=== PATIENT | male | born 2000 | race Caucasian/White ===

== ENCOUNTER 2025-08-31 12:10 | Emergency (ER) | payer SELFPAY ==
[2025-08-31 12:42] VITALS: BP 123/60; PULSE 74; RESP 18; TEMP 36.7; O2SAT 100; BMI 18.6
[2025-08-31 13:14] LABS: Strep A Nucleic Acid Negative (Negative)
[2025-08-31 13:17] LABS: MANUAL DIFF FLAG NO
[2025-08-31 13:23] LABS: Hematocrit 43.2 % (42.0-52.0); Hemoglobin 15.3 g/dl (14.0-18.0); Imm Gran Abs Auto 0.02 X10*3/uL (0.00-0.03); Imm Gran Pct Auto 0.3 % (0.0-0.4); Lymphocytes Absolute Auto 1.0 X10*3/uL (1.2-4.9); Mean Corpuscular HGB Conc 35.4 g/dl (31.0-36.0); Mean Corpuscular Hemoglobin 28.4 pg (27.0-33.0); Mean Corpuscular Volume 80.3 fL (80.0-98.0); NRBC Abs Auto 0.000 X10*3/uL (0.0-0.012); NRBC Pct Auto 0.0 /100WBC (0.0-0.2); Platelet Count 197 X10*3/uL (160-400); Red Blood Count 5.38 X10*6/uL (4.60-5.80); White Blood Count 6.0 X10*3/uL (4.8-10.8)
[2025-08-31 13:34] LABS: Alanine Aminotransferase 12 U/L (0-40); Albumin Level 4.7 g/dL (3.5-5.0); Alkaline Phosphatase 71 U/L (39-117); Anion Gap 12 (12-20); Aspartate Amino Transferase 21 U/L (5-37); Blood Urea Nitrogen 12 mg/dL (9-16); Calcium 9.2 mg/dL (8.4-10.2); Carbon Dioxide 21 mmol/L (22-29); Chloride 110 mmol/L (96-108); Creatinine Clr Calc Pharmacy 123.4; Estimated Glomerular Filt Rate > 60; Potassium 3.9 mmol/L (3.3-5.1); Sodium 139 mmol/L (135-145); Total Protein 6.7 g/dL (6.5-8.0)
[2025-08-31 13:45] LABS: Resp Syncy Virus RNA Qual PCR NEGATIVE (Negative); SARS COV2 PCR INHOUSE POSITIVE (Negative)
--- NOTE | 2025-08-31 14:40 | ED.URI ---
HPI - URI/Sore Throat General Chief Complaint: Upper Respiratory Symptoms Stated Complaint: not feeling well Related Data Allergies Allergy/AdvReac Type Severity Reaction Status Date / Time amoxicillin Allergy Unknown Verified 08/31/25 12:44 Penicillins Allergy Unknown Verified 08/31/25 12:44 [facility] Social History Social History Advance Directives: No Advance Directives Information Provided: Yes Physical Exam Vital Signs: Vital Signs: Last Vital Signs Temp 98.1 F 08/31/25 12:42 Pulse 74 08/31/25 12:42 Resp 18 08/31/25 12:42 BP 123/60 08/31/25 12:42 Pulse Ox 100 08/31/25 12:42 O2 Del Method Room Air 08/31/25 12:42 BMI result Body Mass Index 18.6 Course Course Course Narrative: This is an RME: Additional HPI, ROS, PE not included below will be deferred to primary provider. RME assessment and note performed by: Lisa Mtz PA-C This is a 25-year-old male who presents emergency department with concerns of feeling unwell for the last 2 days including cough, runny nose, stomach pain URI symptoms. Recent exposure to someone with mono and would like to be tested. Patient well-appearing, appears to be under no acute distress. We will obtain basic labs, as well as test for COVID, flu, and RSV. >> upon calling patient back when results returned, patient no longer in the waiting room. Reevaluation(s) Reevaluation #1: Patient left without completing treatment. Medical Decision Making Lab Data 08/31/25 13:04 08/31/25 13:04 Labs: Lab Results 08/31/25 08/31/25 Range/Units 12:58 13:04 WBC 6.0 (4.8-10.8) X10*3/uL RBC 5.38 (4.60-5.80) X10*6/uL Hgb 15.3 (14.0-18.0) g/dl Hct 43.2 (42.0-52.0) % MCV 80.3 (80.0-98.0) fL MCH 28.4 (27.0-33.0) pg MCHC 35.4 (31.0-36.0) g/dl RDW 12.6 (11.0-16.0) % Plt Count 197 (160-400) X10*3/uL MPV 10.7 (9.4-12.4) fL Immature Gran % (Auto) 0.3 (0.0-0.4) % Neut % (Auto) 69.0 (45-73) % Lymph % (Auto) 16.1 L (20-40) % Collier % (Auto) 13.4 H (2-11) % Eos % (Auto) 0.5 (0-4) % Baso % (Auto) 0.7 (0-2) % Lymph # (Auto) 1.0 L (1.2-4.9) X10*3/uL Collier # (Auto) 0.8 (0.1-1.2) X10*3/uL Eos # (Auto) 0.0 (0.0-0.4) X10*3/uL Baso # (Auto) 0.0 (0.0-0.2) X10*3/uL Abs Immat Gran (auto) 0.02 (0.00-0.03) X10*3/uL Absolute Neuts (auto) 4.1 (2.0-8.3) x10*3/uL Absolute Nucleated RBC 0.000 (0.0-0.012) X10*3/uL Nucleated RBC % (auto) 0.0 (0.0-0.2) /100WBC Sodium 139 (135-145) mmol/L Potassium 3.9 (3.3-5.1) mmol/L Chloride 110 H (96-108) mmol/L Carbon Dioxide 21 L (22-29) mmol/L Anion Gap 12 (12-20) BUN 12 (9-16) mg/dL Creatinine 0.84 (0.5-1.4) mg/dL Estim Creat Clear Calc 123.4 Estimated GFR > 60 Random Glucose 91 (60-115) mg/dL Calcium 9.2 (8.4-10.2) mg/dL Total Bilirubin 1.1 H (0.0-1.0) mg/dL AST 21 (5-37) U/L ALT 12 (0-40) U/L Alkaline Phosphatase 71 (39-117) U/L Total Protein 6.7 (6.5-8.0) g/dL Albumin 4.7 (3.5-5.0) g/dL Monoscreen Negative (Negative) Influenza Type A (PCR) NEGATIVE (Negative) Influenza Type B (PCR) NEGATIVE (Negative) RSV RNA Qual (PCR) NEGATIVE (Negative) SARS-CoV-2 RNA (RT-PCR) POSITIVE A (Negative) S. pyogenes GrpA JUANITA Negative (Negative) Discharge Plan Discharge Clinical Impression: COVID Patient Disposition: Left W/O Completing Treatment Additional Instructions: You were seen in the emergency department and you tested positive for COVID. Your blood work is otherwise reassuring. COVID-19 stands for coronavirus disease 2019. It is caused by a virus called SARS-CoV-2. The virus first appeared in late 2019 and quickly spread around the world. Many people only have mild cold symptoms. Some people have digestive problems, like nausea or diarrhea. There have also been some reports of rashes or other skin symptoms. For most people, symptoms get better within a few days to weeks.? Some people with COVID-19 continue to have some symptoms for weeks or months.? Drink plenty of fluids and get plenty of rest. Take Tylenol and Motrin as needed for symptoms. If any new or worsening symptoms occur including but not limited to chest pain or shortness of breath, please return for re-evaluation. What should I do if I have symptoms or test positive?If you have a fever, cough, cold symptoms, or other symptoms of COVID-19, get tested. You can use the flowchart to figure out when to test and what to do based on the results If you?test positive: ? Self-isolate for at least 5 days, even if you feel well. Self-isolation means staying apart from other people, even the people you live with. The 5 days should start the day?after?you first noticed symptoms or got a positive test result. If you have a weak immune system or if you still have a fever, you might need to self-isolate for longer than 5 days. ?After self-isolating for 5 days, wear a mask around all other people for at least 5 more days. Some people use antigen tests to decide how long to keep wearing the mask. If you do this, you can stop wearing a mask once you test negative on 2 antigen tests done at least 2 days apart. ?If your symptoms are severe, or if you are at risk for severe illness,?call?your doctor or nurse. They can tell you if you need to be seen. Depending on your situation, they might suggest treatment. Discharge Date/Time: 08/31/25 14:56
--- OUTSIDE RECORDS SUMMARY | 2025-08-31 16:55 | XMS_ITS ---
Author Name [facility] Organization Unknown Care Team Organization Name Specialty Phone Email Start Date End Da te [facility] 11/19/2022 05/02/2024 [facility] 07/22/20222023
--- OUTSIDE RECORDS SUMMARY | 2025-08-31 16:55 | XMS_ITS | Clinical Summary ---
Author Organization [facility] Address [address] [place] [address] Phone Care Team Providers Care Anchor Tacker Name Role Phone Physician, No Pcp Primary Care Provider Unavaila ble Allergies Active Allergy Reactions Criticality Noted Date Comments Amoxicillin Hives 10/13/2017 Penicillins Unknown 06/28/2025 Medications ibuprofen (ADVIL,MOTRIN) 400 mg tablet Take 1 Tab by mouth every 6 hours as needed for Pain. Take with food 08/20/2018 Active Active Problems Problem Noted Date Diagnosed Date ADHD 09/09/2024 Depression 09/09/2024 Sleep difficulties 09/09/2024 Social anxiety disorder 09/09/2024 Overview (09/09/2024): 11-16 consulted with Emelia 08/27/2018 better off meds, home school at the moment. Encounters Date Type Department Care Team Description 06/29/2025 6:37 PM EDT - 06/29/2025 11:59 PM EDT Hospital Encounter [facility] Bedside Imaging [address] [place] [address] Discharge Disposition: Home or Self Care 06/28/2025 7:36 PM EDT - 06/28/2025 9:[address] [facility] Emergency [address] [place] [address] Tee Khoury MD Cellulitis of knee, left (Primary Dx) Discharge Disposition: Home or Self Care from Last 3 Months Immunizations Immunization Administration Dates Next Due DTaP (Infanrix) 6wks to less than 7yo ,02/08/2004,06/01/2003,04/14,01/06/2003 EHuL-UWY-PPO (Pentacel) 2mo to less than 5yo 02/08/2004,06/01/2003,04/14/2003,01/06 HPV, Quadrivalent 06/22/2015,11/15/2014,12/03/19 14 Hepatitis B Pediatric (Enger ix B; Recombivax HB) to less than 20 yo 06/01/2003,2002,2002 IPV Inactivated polio (Ipol) 6wks and older 11/24/2007,06/01/2003,04/14/2003,01/06 Influenza trivalent, with pr eservative (Fluzone; Afluria) 6mo and older 2008 Influenza, live, intranasal, trivalent (FluMist) 2yo to less than 50yo 06/22/2015,07/08/2012,09/18/2010 MMR, measles mumps and rubel la Live (Priorix; M-M-R II) 12mo and older 02/08/2004 MMRV, measles mumps rubella and varicella live (Proquad) 4yo to less than 7yo 10/05/2006 Meningococcal MCV4P 03/22/2019,12/02/2013 Pneumococcal Conjugate Vacci ne, 7 Valent 06/01/2003,04/14/2003,01/06/2003 Tdap Tetanus diptheria acell ular pertussis (Boostrix; Adacel) 7yo and older 10/28/2012 Varicella live (Varivax) 12m o and older 02/08/2004 Surgical History Surgery Date Site/Laterality Comments CIRCUMCISION, PRIMARY PROCEDURE: HISTORICAL CIRCUMCISION Medical History Medical History Date Comments Adhd DX:ADHD Social anxiety disorder DX:Socia l anxiety disorder Sleep difficulties DX:Sleep diff iculties Depression DX:Depression Family History Medical History Relation Name Comments Sleep apnea Brother Other: Other Maternal Grandfather asbestu s exposure 1 lung Diabetes Maternal Grandmother Other cancer Maternal Grandmother 61 y/o leukemia Cervical cancer Mother Other: Other Paternal Grandfather pancrea titis 66 y/o Asthma Paternal Grandmother Heart attack Paternal Grandmother Stroke Paternal Grandmother Relation Name Status Comments Brother Alive Father Alive Maternal Grandfather Alive Maternal Grandmother Mother Alive Paternal Grandfather Paternal Grandmother (Age 63y/o) Sister 1 Alive Sister 2 Alive Social History Tobacco Use Types Packs/Day Years Used Date Smoking Tobacco: Every Day Cigarettes Passive Smoke Exposure: Yes Smokeless Tobacco: Current Tobacco Cessation:Ready to Q uit: No; Counseling Given: Not Answered Sex and Gender Information Value Date Recorded Sex Assigned at Male 01/06/2025 5:32 PM EDT Legal Sex Male 10:52 PM EST Gender Identity Male 01/06/2025 5:32 PM EDT Sexual Orientation Straight 01/06/2025 5: 32 PM EDT Last Filed Vital Signs Vital Sign Reading Time Taken Comments Blood Pressure 128/67 06/28/2025 5:50 PM EDT Pulse 80 06/28/2025 5:50 PM EDT Temperature 36.7 C (98 F) 06/28/2025 5:50 PM EDT Respiratory Rate 16 06/28/2025 5:50 PM EDT Oxygen Saturation 100% 06/28/2025 5:50 PM EDT Inhaled Oxygen Concentration - - Weight 66.7 kg (147 lb) 06/28/2025 5:50 PM EDT Height 185.4 cm (6' 1 ) 06/28/2025 5:50 PM EDT Body Mass Index 19.39 06/28/2025 5:50 PM EDT Plan of Treatment Health Maintenance Due Date Last Done Comments Pneumococcal Vaccine: Pediatrics (0 to 5 Years) and At-Risk Patients (6 to 49 Years) (1 of 1 - PPSV23, PCV20, or PCV21) 2008 06/01/2003, 04/14/2003, 01/06/2003 Meningococcal B Vaccine (1 of 2 - Standard) 2018 Cholesterol Screening (Lipid Panel) 08/17/2022 HIV Screening 08/17/2022 Hepatitis C Screening 08/17/2022 Social Influencers of Health Screening 08/17/2022 DTaP,Tdap,and Td Vaccines (7 - Td or Tdap) 10/28/2022 10/28/2012, 11/24/2007, 02/08/2004, Additional history exists Depression Screening 09/14/2024 COVID-19 Vaccine (1 - season) 2025 Influenza Vaccine (#1) 2025 5, 07/08/2012, 09/18/2010, Additional history exists RSV Immunization Adult Patients (1 - 1-dose 75+ series) 2077 Hepatitis B Vaccines Completed 06/01/2003, 2002, 2002 HIB Vaccines Completed 02/08/2004, 05/15, 04/14/2003, Additional history exists MMR Vaccines Completed 10/05/2006, 02/08/2004 Varicella Vaccines Completed 10/05/2006, 02/08/2004 IPV Vaccines Completed 11/24/2007, 01/13, 06/01/2003, Additional history exists HPV Vaccines Completed 06/22/2015, 12/2014, 12/02/2013 Meningococcal ACWY Vaccine Completed 03/22/2019, Hepatitis A Vaccines Aged Out No long er eligible based on patient's age to complete this topic RSV Immunization Patients Under 20 months Aged Out No longer eligible based on patient's age to complete this topic Procedures Procedure Name Priority Date/Time Associated Diagnosis Comments US BEDSIDE SOFT TISSUE/MUSCULOSKELETA L Routine 06/29/2025 6:37 PM EDT XR KNEE 4+ VIEWS LEFT STAT 06/28/2025 7:46 PM EDT CBC WITH AUTO DIFFERENTIAL STAT 06/28/2025 7:35 PM EDT C-REACTIVE PROTEIN STAT 06/28/2025 7: 35 PM EDT HEPATIC FUNCTION PANEL STAT 06/28/2025 7:35 PM EDT BASIC METABOLIC PANEL STAT 06/28/2025 7:35 PM EDT CBC AND DIFFERENTIAL STAT 06/28/2025 7:35 PM EDT from Last 3 Months Results * US BEDSIDE SOFT TISSUE/MUSCULOSKELETAL (06/29/2025 6:37 PM EDT) Anatomical Region Laterality Modality Ultrasound Narrative 06/29/2025 6:37 PM EDT Tee Canas MD 06/29/2025 6:38 PM US ED Bedside Soft Tissue/Musculoskeletal Date/Time: 06/29/2025 6:37 PM Performed by: Tee Canas MD Authorized by: Tee Canas MD Procedure details: Indications: cellulitis Transverse view: Visualized Longitudinal view: Visualized Findings: Fracture: not identified Tendon rupture: not identified Muscle tear: not identified Infant hip effusion: not identified Joint effusion: not identified Comments: Cobblestones around scab wound with no drainable abscess. us Tee Canas MD US BEDSIDE PROCEDURE S Final Result * XR Knee 4+ Views Left (06/28/2025 7:46 PM EDT) Anatomical Region Laterality Modality Lower Extremities, Knee Left Radiogra phic Imaging 06/29/2025 7:32 AM EDT Impressions 06/29/2025 7:33 AM EDT No acute fracture or subluxation. Extensive soft tissue swelling. This study does not exclude infection. -------- FINAL REPORT -------- Dictated By: Gunner Flowers Dictated Date: 06/29/2025 07:32 ET Assigned Physician: Gunner Flowers Reviewed and Electronically Signed By: Gunner Flowers Signed Date: 06/29/2025 07:33 ET Workstation ID: [id number] Transcribed By: Self Edit Transcribed Date: 06/29/2025 07:32 ET Narrative 06/29/2025 7:33 AM EDT EXAMINATION: LEFT KNEE CLINICAL INFORMATION: Pain. COMPARISON: None. TECHNIQUE: 4 views left knee FINDINGS: The alignment is normal. There is no fracture, focal lesion or periosteal new bone. There is no opaque loose body. There is no definite bone destruction. There is extensive soft tissue swelling. No metallic foreign body. Procedure Note Gunner Flowers MD - 06/29/2025 EXAMINATION: LEFT KNEE CLINICAL INFORMATION: Pain. COMPARISON: None. TECHNIQUE: 4 views left knee FINDINGS: The alignment is normal. There is no fracture, focal lesion or periostealnew bone. There is no opaque loose body. There is no definite bonedestruction. There is extensive soft tissue swelling. No metallic foreign body. IMPRESSION: No acute fracture or subluxation. Extensive soft tissue swelling. This study does not exclude infection. -------- FINAL REPORT -------- Dictated By: Gunner Flowers Dictated Date: 06/29/2025 07:32 ET Assigned Physician: Gunner Flowers Reviewed and Electronically Signed By: Gunner Flowers Signed Date: 06/29/2025 07:33 ET Workstation ID: [id number] Transcribed By: Self Edit Transcribed Date: 06/29/2025 07:32 ET us Doroteo Rush MD IMG XR PROCEDURES Final Resu lt * CBC auto differential (06/28/2025 7:35 PM EDT) WBC 8.7 4.8 - 10.8 K/mcL LAB HEMETOLOGY METHOD 06/28/2025 8:04 PM EDT [facility] RBC 5.10 4.50 - 5.50 M/[facility] LAB HEMETOLOGY METHOD 06/28/2025 8:04 PM EDT [facility] Hemoglobin 14.7 13.5 - 17.5 g/dL LAB HEMETOLOGY METHOD 06/28/2025 8:04 PM EDT [facility] Hematocrit 42.8 42.0 - 54.0 % LAB HEMETOLOGY METHOD 06/28/2025 8:04 PM EDT [facility] MCV 83.6 79.0 - 98.0 FL LAB HEMETOLOGY METHOD 06/28/2025 8:04 PM EDT [facility] MCH 28.7 27.0 - 32.0 pcg LAB HEMETOLOGY METHOD 06/28/2025 8:04 PM EDT [facility] MCHC 34.3 32.0 - 37.0 g/dL LAB HEMETOLOGY METHOD 06/28/2025 8:04 PM EDT [facility] RDW 12.4 11.0 - 15.0 % LAB HEMETOLOGY METHOD 06/28/2025 8:04 PM EDT [facility] Platelets 209 130 - 400 K/mcL [facility] MPV 10.8 7.0 - 11.0 FL LAB HEMETOLOGY METHOD 06/28/2025 8:04 PM EDT [facility] NRBC 0.0 <1.0 % LAB HEMETOLOGY METHOD 06/28/2025 8:04 PM EDT [facility] NRBC Absolute 0.00 <0.10 K/mcL LAB HEMETOLOGY METHOD 06/28/2025 8:04 PM [facility] Neutrophils Relative 60.8 % [facility] Lymphocytes Relative 29.5 % LAB HEMETOLOGY METHOD 06/28/2025 8:04 PM [facility] Monocytes Relative 8.5 % LAB HEMETOLOGY METHOD 06/28/2025 8:04 PM [facility] Eosinophils Relative 0.7 % LAB HEMETOLOGY METHOD 06/28/2025 8:04 PM [facility] Basophils Relative 0.3 % LAB HEMETOLOGY METHOD 06/28/2025 8:04 PM T [facility] Immature Granulocytes Relative 0.2 % LAB [facility] Neutrophils Absolute 5.30 1.50 - 7.00 K/mcL LAB [facility]OLOGY [facility] Lymphocytes Absolute 2.57 1.00 - 5.00 K/mcL LAB HEMETOLOGY METHOD 06/28/2025 8:04 PM EDT [facility] Monocytes Absolute 0.74 0.20 - 1.00 K/[facility] LAB HEMETOLOGY METHOD 06/28/2025 8:04 PM EDT [facility] Eosinophils Absolute 0.06 0.00 - 0.50 K/[facility] LAB HEMETOLOGY METHOD 06/28/2025 8:04 PM EDT [facility] Basophils Absolute 0.03 0.00 - 0.20 K/[facility] LAB HEMETOLOGY METHOD 06/28/2025 8:04 PM EDT [facility] Immature Granulocytes Absolute 0.02 0.00 - 0.03 K/[facility] LAB HEMETOLOGY METHOD 06/28/2025 8:04 PM EDT [facility] Blood Venous blood specimen / Unknown Venipuncture / Unknown 06/28/2025 7:35 PM EDT 06/28/2025 7:53 PM EDT Tee Canas MD LAB BLOOD ORDERABLES Final Result [facility] [address] [place] [address], * (ABNORMAL) C-reactive protein (06/28/2025 7:35 PM EDT) C-Reactive Protein 1.26(H) <=0.50 mg/dL LAB CHEMISTRY METHOD 06/28/2025 8:25 PM EDT [facility] Blood Venous blood specimen / Unknown Venipuncture / Unknown 06/28/2025 7:35 PM EDT 06/28/2025 7:53 PM EDT Tee Canas MD LAB BLOOD ORDERABLES Final Result [facility] [address] [place] [address], [place] [phone] * Hepatic function panel (06/28/2025 7:35 PM EDT) Total Protein 7.0 6.0 - 8.0 g/dL LAB CHEMISTRY METHOD 06/28/2025 8:25 PM EDT [facility] Albumin 4.0 3.2 - 5.0 g/dL LAB CHEMISTRY METHOD 06/28/2025 8:25 PM EDT [facility] Total Bilirubin 0.5 0.0 - 1.4 mg/dL LAB CHEMISTRY METHOD 06/28/2025 8:25 PM EDT [facility] Bilirubin, Direct 0.1 0.0 - 0.3 mg/dL LAB CHEMISTRY METHOD 06/28/2025 8:25 PM EDT [facility] Bilirubin, Indirect 0.4 0.0 - 1.1 mg/dL LAB CHEMISTRY METHOD 06/28/2025 8:25 PM EDT [facility] ALT (SGPT) 15 10 - 60 unit/L LAB CHEMISTRY METHOD 06/28/2025 8:25 PM EDT [facility] AST (SGOT) 14 10 - 42 unit/L LAB CHEMISTRY METHOD 06/28/2025 8:25 PM EDT [facility] Alkaline Phosphatase 88 42 - 121 unit/L LAB CHEMISTRY METHOD 06/28/2025 8:25 PM EDT [facility] Blood Venous blood specimen / Unknown Venipuncture / Unknown 06/28/2025 7:35 PM EDT 06/28/2025 7:53 PM EDT Tee Canas MD LAB BLOOD ORDERABLES Final Result [facility] [address] [place] [address], [place] [phone] * Basic metabolic panel (06/28/2025 7:35 PM EDT) Sodium 139 133 - 145 mmol/L LAB CHEMISTRY METHOD 06/28/2025 8:25 PM [facility] Potassium 4.2 3.5 - 5.5 mmol/L LAB CHEMISTRY METHOD 06/28/2025 8:25 PM [facility] Chloride 106 96 - 110 mmol/L LAB CHEMISTRY METHOD 06/28/2025 8:25 PM [facility] CO2 27 21 - 32 mmol/L LAB CHEMISTRY METHOD 06/28/2025 8:25 PM [facility] Anion Gap 6 3 - 11 LAB CHEMISTRY METHOD 06/28/2025 8:25 PM [facility] Glucose 90 70 - 100 mg/dL LAB CHEMISTRY METHOD 06/28/2025 8:25 PM [facility] BUN 11 5 - 25 mg/dL LAB CHEMISTRY METHOD 06/28/2025 8:25 PM [facility] Creatinine 0.86 0.70 - 1.30 mg/dL LAB CHEMISTRY METHOD 06/28/2025 8:25 PM [facility] eGFR 126 >=60 mL/min/1. 73m2 LAB CHEMISTRY METHOD 06/28/2025 8:25 PM [facility] Comment:Calculation based on the Chronic Kidney Disease Epidemiology Collaboration (CKD-EPI) equation refit without adjustment for race. BUN/Creatinine Ratio 12.8 LAB CHEMISTRY METHOD 06/28/2025 8:25 PM [facility] Calcium 9.4 8.5 - 10.5 mg/dL LAB CHEMISTRY METHOD 06/28/2025 8:25 PM [facility] Blood Venous blood specimen / Unknown Venipuncture / Unknown 06/28/2025 7:35 PM EDT 06/28/2025 7:53 PM EDT Tee Canas MD LAB BLOOD ORDERABLES Final Result [facility] [address] [place] [address], from Last 3 Months Care Teams Anchor Tacker Relationship Specialty Start Date End Date Physician, No Pcp PCP - General 06/28/25
== END 2025-08-31 14:56 | disposition left against medical advice (07) ==
PROVIDERS: Emergency Medicine Emergency Medical Services; Physician Assistant Medical; Emergency Provider Emergency Medicine
DX: U07.1 COVID-19 (principal)
CPT/HCPCS: 36415; 80053; 85025; 86308; 87637; 87651; 99281